=== PATIENT | male | born 1945 | race Two or more races ===

== ENCOUNTER 2022-09-12 06:28 | Observation (INO) ==
--- NOTE | 2022-08-30 14:03 | PAT Medication Instructions ---
Medication Instructions Date of Service August 30, 2022 Home Medications allopurinol 100 mg tablet 100 mg PO QAM apixaban 5 mg tablet (Eliquis) 5 mg PO BID atorvastatin 10 mg tablet 10 mg PO PM cholecalciferol (vitamin D3) 100 mcg (4,000 unit) tablet 100 mcg PO QAM coenzyme Q10 75 mg capsule (Ultra CoQ10) 75 mg PO QAM digoxin 125 mcg (0.125 mg) tablet 125 mcg PO QAM duloxetine 20 mg capsule,delayed release 20 mg PO BID fenofibric acid (choline) 135 mg capsule,delayed release 135 mg PO PM losartan 100 mg tablet 100 mg PO QAM metoprolol tartrate 50 mg tablet 50 mg PO BID eycgxiiqejaw-dqejnmor-tlgdkk tablet 1 tab PO QAM ascorbic acid (vitamin C) 125 mg chewable tablet (Vitamin C) 125 mg PO QAM levothyroxine 75 mcg tablet 75 mcg PO QAM ASK your prescriber and surgeon apixaban 5 mg tablet (Eliquis) 5 mg PO BID (in order for spinal anesthesia, Apixaban/Eliquis needs to be stopped 72 hours/3 days before surgery. Please check if okay with doctor that prescribes this to you) STOP taking 2 weeks before surgery (or as soon as possible if surgery is within 2 weeks) coenzyme Q10 75 mg capsule (Ultra CoQ10) 75 mg PO QAM lxfuefizxeet-tznufwgd-rfeipl tablet 1 tab PO QAM STOP taking 48 hours before surgery fenofibric acid (choline) 135 mg capsule,delayed release 135 mg PO PM DO NOT take the morning of surgery cholecalciferol (vitamin D3) 100 mcg (4,000 unit) tablet 100 mcg PO QAM losartan 100 mg tablet 100 mg PO QAM ascorbic acid (vitamin C) 125 mg chewable tablet (Vitamin C) 125 mg PO QAM Take morning of surgery With a small sip of water, OTHERWISE NOTHING TO EAT OR DRINK AFTER MIDNIGHT: allopurinol 100 mg tablet 100 mg PO QAM digoxin 125 mcg (0.125 mg) tablet 125 mcg PO QAM duloxetine 20 mg capsule,delayed release 20 mg PO BID metoprolol tartrate 50 mg tablet 50 mg PO BID levothyroxine 75 mcg tablet 75 mcg PO QAM Take evening before surgery atorvastatin 10 mg tablet 10 mg PO PM duloxetine 20 mg capsule,delayed release 20 mg PO BID metoprolol tartrate 50 mg tablet 50 mg PO BID Other Notes If you have any questions please call us at [phone] or [phone] or [phone] or [phone]
--- NOTE | 2022-09-07 15:04 | Anesthesiology Consultation ---
Date of Service September 07, 2022 Assessment & Plan (1) Encounter for pre-operative examination: - COVID screening: Per assessment on 09/07: No known COVID-19 positive contacts or current COVID-19 related symptoms. Travel screen negative. Patient vaccinated. At surgeon discretion if preop Covid testing being done. - Outpatient joint assessment: Pt currently scheduled for inpatient pathway. If surgeon requests review for outpatient joint pathway, patient is not recommended candidate for outpatient joint program from anesthesia standpoint. - Check BSG AM DOS - Apixaban instructions: patient made aware that in order for spinal anesthesia, Apixaban needs to be held 72 hours/3 days prior to surgery. Patient voiced understanding/will check if okay with prescriber. Chart Review Chart Review: Acceptable Risk for Surgery and Patient seen in Pre Admission Testing Teaching & Discussion Pre-Anesthesia Teaching/Discussion Notes: Instructed NPO after midnight before surgery,except medications with 15 cc of water. Medication instructions provided according to the PAT guidelines. History Surgery Operation Date: 09/12/22 10:40 Proposed Procedures p Right Total Hip Arthroplasty - Andres Kirkpatrick MD Height/Weight Height: 5 ft 7 in Weight: 87.5 kg Allergies Allergy/AdvReac Type Severity Reaction Status Date / Time No Known Allergies Allergy Verified 08/29/22 15:01 Medications Home Medications Medication Instructions Recorded Confirmed Last Taken allopurinol 100 mg tablet 100 mg PO QAM 08/25/22 08/29/22 Unknown apixaban 5 mg tablet (Eliquis) 5 mg PO BID 08/25/22 08/29/22 Unknown atorvastatin 10 mg tablet 10 mg PO PM 08/25/22 08/29/22 Unknown cholecalciferol (vitamin D3) 100 100 mcg PO QAM 08/25/22 08/29/22 Unknown mcg (4,000 unit) tablet coenzyme Q10 75 mg capsule (Ultra 75 mg PO QAM 08/25/22 08/29/22 Unknown CoQ10) digoxin 125 mcg (0.125 mg) tablet 125 mcg PO QAM 08/25/22 08/29/22 Unknown duloxetine 20 mg capsule,delayed 20 mg PO BID 08/25/22 08/29/22 Unknown release fenofibric acid (choline) 135 mg 135 mg PO PM 08/25/22 08/29/22 Unknown capsule,delayed release losartan 100 mg tablet 100 mg PO QAM 08/25/22 08/29/22 Unknown metoprolol tartrate 50 mg tablet 50 mg PO BID 08/25/22 08/29/22 Unknown lgfgyvkrvllz-iytjdzcw-hqkbgg tablet 1 tab PO QAM 08/25/22 08/29/22 Unknown ascorbic acid (vitamin C) 125 mg 125 mg PO QAM 08/29/22 08/29/22 Unknown chewable tablet (Vitamin C) levothyroxine 75 mcg tablet 75 mcg PO QAM 08/29/22 08/29/22 Unknown Past Medical History Medical History Arthritis of right hip Atrial fibrillation Dx 3+ years ago, on Eliquis Managed by PCP CKD (chronic kidney disease) Congenital nystagmus Diabetes Diet controlled Diverticular disease Hiatal hernia Possible Hyperlipidemia Hypertension Hypothyroidism Leaky heart valve No significant valvular disease per 05/2022 echo Osteoarthritis Exercise / Class Metabolic Activity II 4-5 Yardwork/Stairs/Walk up hill (one FS (no CP, no SOB)) Past Family History Family History Mother Diabetes Past Surgical History Surgical History History of cardiac cath 15 yrs ago > no stents History of cardioversion History of cataract surgery R/L History of colonoscopy History of esophagogastroduodenoscopy (EGD) History of tooth extraction Hx of detached retina repair right Hx of inguinal hernia repair left x2 Past Anesthesia History No Hx of Anesthesia Complications and No Family Hx of Anesthesia Complications History of PONV No Hx of PONV and No Hx of Motion Sickness Social History Smoking Status: Former smoker Do You Dip or Chew Tobacco: No (quit in 1988) Smoking End Date: Quit 1988 Hx Alcohol Use: Yes Alcohol type: beer alcohol intake frequency: a few times a month Hx Substance Use: No substance use type: does not use Review of Systems Patient denies chest pain, shortness of breath, dyspnea on exertion, fever, chills, cough, wheezing, palpitations. Physical Exam Vital Signs VITALS BP 147/84 P 55 TEMP 98.3 SP02 96%RA RESP 16 PHYSICAL Full cervical extension range of motion. Full TMJ range of motion. TMD 4 finger breaths Mallampati Score 1 Dentition: upper partial Lungs: clear throughout to auscultation Cardiac: regular rate, irregular rhythm, no murmurs noted Spine: normal Carotid arteries: negative bruit Extremities: no edema Lab Results Anesthesia Preop Results Results Anesthesia Widget: WBC 6.70 K/ul (4.8-10.8) 09/07/22 Hgb 14.3 g/dl (14.0-18.0) 09/07/22 Hct 42.6 % (40.1-51.0) 09/07/22 Plt 287 K/uL (130-400) 09/07/22 Na 133 mmol/L (136-145) L 09/07/22 K 4.2 mmol/L (3.5-5.1) 09/07/22 Cl 102 mmol/L (98-107) 09/07/22 CO2 21 mmol/L (21-32) 09/07/22 BUN 24 mg/dl (6-23) H 09/07/22 Creat 0.93 mg/dl (0.6-1.4) 09/07/22 Glucose Level 104 mg/dl (70-99(Fasting)) H 09/07/22 PT 11.3 Seconds (9.0-12.0) 09/07/22 PTT 30.2 Seconds (21.0-31.0) 09/07/22 INR 1.1 (0.9-1.1) 09/07/22 Blood Type O Positive 09/07/22 Antibody Screen NEGATIVE 09/07/22 Testing Electrocardiogram Date: 06/16/22 A. fib at 71 bpm. Low voltage QRS in limb leads. Chest X-Ray Date: 01/14/22 Spinal silhouette is mildly elevated. Atherosclerotic calcification of the aortic arch. Multilevel anterior bridging osteophytes which may reflect evidence of DISH. No acute airspace opacities are seen. Echocardiogram Date: 06/16/22 EF 55-60%. No regional motion abnormality. Mild MR. Severe LAD. Mild AR. COVID-19 Risk Screen Screening Information COVID-19 Screen Date: 09/07/22 Exposure 21 Days Family/Household +COVID Last 21 Days: No Exposure 10 Days Any COVID Exposure Last 10 Days: No Symptoms Last 10 Days Experienced COVID Sx Last 10 Days: No + COVID 0-90 Days COVID + in Last 0-90 Days: No
[~2022-09-12 06:28] MED LIST: ACETAMINOPHEN 500 MG TAB PO SCH; CeleBREX 200 MG CAP PO SCH; FAMOTIDINE 20 MG TAB PO SCH; LR 500ML BOLUS, THEN 15ML/HR IV SCH; METOCLOPRAMIDE HCL 10 MG TABLET PO SCH; TRANEXAMIC ACID 1,000 MG **IV Pre-op IV SCH; ceFAZolin 2000MG 2,000 MG/15 ML SYR IV SCH
--- NOTE | 2022-09-12 06:57 | History & Physical Bridge Note ---
Date of Service September 12, 2022 History & Physical Bridge Note I have examined the patient, reviewed the History & Physical and in the interval since the performance of the History & Physical I have noted the following changes of clinical significance: no changes noted
[2022-09-12] MEDS ORDERED: BUPIVACAINE 0.5 % 5 MG/1 ML PF 10ML VIAL ONE (06:59)
[2022-09-12] MEDS ORDERED: MIDAZOLAM HCL 1 MG/ML 2ML VIAL ONE (07:27)
[2022-09-12] MEDS ORDERED: fentaNYL citrate 100 MCG/2 ML VIAL ONE (07:27)
[2022-09-12] MEDS ORDERED: BUPIVACAINE 0.5 % 5 MG/1 ML MPF 30ML VIAL ONE (08:44)
[2022-09-12] MEDS ORDERED: EPINEPHrine INJ 1 MG/ML AMP ONE (08:44)
[2022-09-12] MEDS ORDERED: PROPOFOL IV EMULSION 10 MG/ML 20 ML VIAL IV ONE (08:59)
--- NOTE | 2022-09-12 10:26 | Operative Report ---
PG Post Operative Report Pre & Post Diagnosis Operation Date: 09/12/22 08:50 Pre-Op Diagnosis: Right hip degenerative joint disease. Post-Op Diagnosis: Right hip degenerative joint disease. I identified the patient and participated in the time-out.: Yes Procedure Operation Date: 09/12/22 08:50 Actual Procedures p Right Total Hip Arthroplasty(Right) - Andres Kirkpatrick MD Surgeon Andres Kirkpatrick MD [employer] Yoni Tirado PA-C Estimated Blood Loss 200 Findings Consistent with Post-Op Diagnosis Operative findings were advanced right hip DJD. He had advanced grade 4 ppbi-nj-suxc disease of the femoral head and acetabulum. He had pretty significant eburnation of both surfaces. Is a large osteophyte and extra bone formed posteriorly as well as inferiorly likely related to his previous fracture. Moderate-sized joint effusion. Very stiff hip. Fluids 1000 cc Specimens Right femoral head sent for pathology Drains None Anesthesia Type Spinal MAC Complications none Disposition Accompanied Patient To Recovery: No Indications Patient 77-year-old gentleman who has a history of an acetabular fracture many y ears ago treated conservatively. Over the past 5 years he developed increased pain discomfort and stiffness in his right hip. The pain is progressed despite conservative care. X-rays show advanced arthritis. He elected proceed with surgical treatment. Description of Procedure Operative implants consist of: 1. Biomet G7 size 58 mm acetabular shell. 2. [place] hole die storage worker. 3. 6.5 cancellous acetabular screws 135 mm length by 30 mm length. 4. Highly cross-linked polyethylene liner with a 58 mm outer diameter and 36 mm inner diameter. 5. DePuy Corail size 13 KLA short neck/125 degree angle femoral stem. 6. +5/36 mm ceramic articular ball. The patient was taken the operating, identified, and placed on the operating table supine position protectors were properly padded. IV antibiotics tried by anesthesia team. Spinal anesthetic and been implemented holding area. Rucker catheter was placed in sterile fashion. Patient then placed in the left lateral decubitus position. An axillary roll was placed. A Stulberg hip positioner used for positioning. Right hip and leg were then prepped and draped in usual sterile fashion. A posterolateral approach to the right hip was then performed through a curvilinear incision centered over the greater trochanter. Sharp dissection Through subcutaneous tissue down below the IT band gluteal fascia the IT band gluteal fascia incised longitudinally in line with skin incision. The underlying greater bursa was excised. The piriformis and external rotators were tagged and taken off the posterior aspect of the hip joint capsule. Great care was taken throughout the procedure protect the sciatic nerve at all times. A posterior capsulotomy was then performed leaving a large flap for later repair. Hip was internally rotated and dislocated. Femoral neck osteotomy cut was made with Final Cut about 14 mm above the lesser trochanter. Femoral head was removed and sent for pathology. The femur was retracted anteriorly. Attention drawn the acetabulum. The acetabular labrum was excised. The pulmonary fat was excised. I did remove some osteophytes posterior and inferior as they were quite a large and in the way. I then reamed beginning with a size 49 and progressing up to a 57. I did reamed a little bit with a 58 reamer and then placed a 58 mm Biomet G7 acetabular shell in about 40 degrees lateral opening and 20 degrees of anteversion. It was fixed with two 6.5 cancellous acetabular screws. Trial liner was placed. Attention drawn the femur. The proximal femur was entered with a [employer] cutter followed by canal finder. I then broached beginning size 8 and progressing up to a 13. We got excellent fit at 13. Hip was then trialed. With the initial neck it was just really tight. Therefore we elected to use the short neck. The hip was fully stable full extension and external rotation flexion to 90 degrees internal Tatian to about 50 degrees. I did elect to place a hendrickson inferior and posterior to maximize his stability in flexion. All trial implants were removed. An apex hole die storage worker was placed. Highly cross-linked polyethylene liner with a hendrickson placed inferior and posterior was then impacted in position. DePuy size 13 KLA short neck 125 degree angle femoral stem was impacted in position. +5/36 mm ceramic articular ball was placed. Hip was located once again found to be stable. Still a bit tight in extension but I elected to accept this. Leg lengths seem equal. Otherwise soft tissue tension seemed appropriate. Attention drawn toward closing. The wounds irrigated copious pulsatile lavage solution. I did inject locally with 60 cc of half percent Marcaine with epinephrine. Posterior capsule and external rotators then repaired through drill holes in the posterior trochanter with #2 Tycron suture. The IT band gluteal fascia then closed in 1 PDS suture running fashion for subcutaneous tissue then closed with 2 layers with a deep layer #1 Vicryl suture in the subcutaneous tissues with 2-0 Dexon suture in a buried interrupted fashion. Skin was closed skin griffin. Leg was then cleaned and dried and a sterile dressing was Xeroform, 4 x 4's, sterile ABD pad, foam tape was applied. Patient then transferred to the recovery room in stable condition. Patient tolerated procedure well and there were no complications. Yoni Tirado, my physician data entry assistant, was present for the entire procedure. His assistance was essential and required for appropriate patient positioning, prepping and draping, surgical exposure, performing the technical details of the operation, placement the implants, closure of the wound, and placement of the sterile bandage. I attest to the content of the Intraoperative Record and any orders documented therein. Any exceptions are noted below.
[2022-09-12] MEDS ORDERED: METOCLOPRAMIDE HCL INJ 5 MG/ML 2 ML VIAL IV PRN (12:02)
[2022-09-12] MEDS ORDERED: MAGNESIUM HYDROXIDE SUSP 30 ML UDC PO PRN (12:02)
[2022-09-12] MEDS ORDERED: bisacodyL 10 MG SUPP PR PRN (12:02)
[2022-09-12] MEDS ORDERED: GLUCAGON FOR INJ 1 MG VIAL SQ PRN (12:02)
[2022-09-12] MEDS ORDERED: GLUCOSE 10 TAB/TUBE PO PRN (12:02)
[2022-09-12] MEDS ORDERED: traMADol HCL 50 MG TABLET PO PRN (12:02)
[2022-09-12] MEDS ORDERED: ALUMINUM/MAGNESIUM SUSP 30 ML UDC PO PRN (12:02)
[2022-09-12] MEDS ORDERED: PHARMACY GLYCEMIC MGMT CONSULT PRN (12:02)
[2022-09-12] MEDS ORDERED: HYDROmorphone INJ 0.5 MG/0.5 ML SYR IV PRN (12:02)
[2022-09-12] MEDS ORDERED: CARBOHYDRATES FOR HYPOGLYCEMIA PO PRN (12:02)
[2022-09-12] MEDS ORDERED: GLUCOSE 40% GEL 15 GM TUBE PO PRN (12:02)
[2022-09-12] MEDS ORDERED: NALOXONE HCL 0.4 MG/1 ML VIAL/CARP IV PRN (12:02)
[2022-09-12] MEDS ORDERED: DEXTROSE 50% 50 ML SYRINGE IV PRN (12:02)
[2022-09-12] MEDS ORDERED: ONDANSETRON INJ 2 MG/ML 2 ML VIAL IV PRN (12:02)
[2022-09-12] MEDS: SODIUM CHLORIDE 0.9% 1000ML 1,000 ML IV SCH ×2 (12:07→21:35)
--- NOTE | 2022-09-12 12:37 | Anesthesiology Progress Note ---
Date of Service September 12, 2022 Anesthesia Post Procedure Vital Signs Vital Signs: Temp Pulse Pulse Resp BP Pulse Ox O2 Del Method 09/12/22 12:29 76 16 102/66 92 Room Air 09/12/22 12:00 36.5 C 68 16 97/62 L 94 Room Air 09/12/22 11:10 77 12 92/66 L 98 Room Air 09/12/22 11:35 36.2 C L 66 17 105/65 97 Room Air 09/12/22 11:20 65 12 103/68 95 Room Air 09/12/22 11:00 76 15 98/66 L 96 Room Air 09/12/22 10:50 69 15 96/66 L 96 Room Air 09/12/22 10:40 85 17 90/64 L 100 Oxymask 09/12/22 10:30 83 18 88/56 L 97 Oxymask 09/12/22 10:21 36.3 C L 98 H 18 89/68 L 98 Oxymask 09/12/22 07:29 36.8 C 92 H 20 135/100 97 Room Air O2 Flow Rate 09/12/22 12:29 09/12/22 12:00 09/12/22 11:10 09/12/22 11:35 09/12/22 11:20 09/12/22 11:00 09/12/22 10:50 09/12/22 10:40 6 09/12/22 10:30 6 09/12/22 10:21 6 09/12/22 07:29 Transfer of Care Handoff Completed per policy Notes Mental Status: alert / awake / arousable Patient Amnestic to Procedure: Yes Nausea / Vomiting: adequately controlled Pain: adequately controlled Airway Patency, RR, SpO2: stable & adequate BP & HR: stable & adequate Hydration State: stable & adequate Neuraxial Anesthesia: was administered and sensory block is resolving Anesthetic Complications: no major complications apparent
--- NOTE | 2022-09-12 12:58 | XRay Report ---
XR hip 1V RT w pelvis CLINICAL HISTORY: IN PACU - Post Surgical TECHNIQUE: 2 views of the right hip and single frontal view of the pelvis were obtained. Comparison: Comparison is made to right hip radiographs 08/25/2022 FINDINGS: Patient is status post total hip arthroplasty with expected postsurgical changes including soft tissu e swelling and subcutaneous emphysema. Joint spaces are well-preserved. No soft tissue abnormality i s seen. IMPRESSION: Expected postoperative appearance status post placement of total hip arthroplasty. ACT 112: Negative or not required by law. Electronically signed by: Carlton Ferro M.D. 09/12/2022 12:56 PM
[2022-09-12] MEDS: ACETAMINOPHEN 500 MG TAB PO SCH ×2 (14:06→21:44)
--- NOTE | 2022-09-12 14:11 | Progress Notes ---
DATE OF SERVICE: 09/12/2022 SUBJECTIVE: A 77-year-old gentleman postoperative from a right hip replacement. He is doing pretty well. Really not having any pain yet. No chest pain, no shortness of breath. Not feeling dizzy or lightheaded. OBJECTIVE: VITAL SIGNS: Temperature is 36.4. Vital signs are stable. GENERAL: Shows a pleasant, elderly male. He is sitting up in bed, looks comfortable. He is talking to his . LUNGS: Clear to auscultation. HEART: Regular rate and rhythm. ABDOMEN: Soft, nontender, nondistended. EXTREMITIES: Grossly neurovascularly intact except as follows: Examination of the right leg reveals the leg lengths to be equal. Dressing is clean, dry and intact. Thigh is soft and supple. He can dorsiflex and plantarflex his foot appropriately. X-RAYS: X-rays of the right hip from recovery room are reviewed. It shows right uncemented hip repl acement. Components looked to be in good position. No signs of problems. ASSESSMENT: A 77-year-old gentleman postoperative from a right hip replacement, doing well. He has got multiple medical comorbidities, but all seem to be under control. PLAN: 1. DVT prophylaxis includes thigh-high TEDs, SCDs and we will start him back on his Eliquis starting 24 hours postop. We will start a prophylactic dose and then proceed to a full dose as time goes on. 2. PT, OT, weightbear as tolerated. Right total hip protocol. 3. Pain control, doing okay with current pain regimen. 4. Disposition: Plan to discharge to home with some home health once adequately recovered and medic ally stable. Job ID: [id number]
--- NOTE | 2022-09-12 14:27 | Pharmacy Report ---
Pharmacy Glycemic Short Note 2 - Date of Service September 12, 2022 - Glycemic Short BSG Results (Last 24 hours): 09/12/22 09/12/22 09/12/22 07:20 10:24 12:20 POC Glucose 137 H 175 H 112 H OUTPATIENT ANTIDIABETIC REGIMEN: * N/A * No A1c- ordered for tomorrow ASSESSMENT: * Patient BSG today 137-175 and 112 post op. No steroid administration evident. Given lack of history and post op BSG, will only order a novolog scale with correctional parameters at this time. PLAN FOR INPATIENT GLYCEMIC CONTROL: * Hold outpatient oral diabetes medications * Basal insulin * none * Bolus insulin * NovoLog per scale ACHS or Q6hrs while NPO * Goal Range: Low 110 mg/dL - High 140 mg/dL * Correction Factor: 40 mg/dL/unit
[2022-09-12] MEDS ORDERED: TRANEXAMIC ACID / 0.7% NACL 1,000 MG/100 ML BAG IV SCH (16:30)
[2022-09-12] MEDS: ASCORBIC ACID 500 MG TAB PO SCH (16:42)
[2022-09-12] MEDS: ceFAZolin 2000MG 2,000 MG/15 ML SYR IV SCH (16:42)
[2022-09-12] MEDS: INSULIN ASPART PER UNIT SC SCH ×2 (17:19→21:36)
[2022-09-12] MEDS: KETOROLAC TROMETHAMINE 15 MG/ML VIAL IV SCH (18:10)
[2022-09-12] MEDS: DOCUSATE SODIUM/SENNA 50/8.6MG TAB PO SCH (20:12)
[2022-09-12] MEDS: METOPROLOL TARTRATE 50 MG TAB PO SCH (20:13)
[2022-09-12] MEDS: DULoxetine HCL 20 MG CAP PO SCH (20:13)
[2022-09-12] MEDS: DOCUSATE SODIUM 100 MG CAP PO SCH (20:14)
[2022-09-12] MEDS ORDERED: ATORVASTATIN 10 MG TAB PO SCH (21:00)
[2022-09-12] MEDS ORDERED: SENNA 8.6 MG TAB PO SCH (21:00)
[2022-09-13] MEDS: ceFAZolin 2000MG 2,000 MG/15 ML SYR IV SCH (00:18)
[2022-09-13] MEDS: KETOROLAC TROMETHAMINE 15 MG/ML VIAL IV SCH ×2 (00:18→05:29)
[2022-09-13] MEDS: ACETAMINOPHEN 500 MG TAB PO SCH (05:30)
[2022-09-13 07:18] LABS: Basophils # (auto) 0.02 K/uL (0-0.2); Basophils % (auto) 0.2 %; Eosinophils # (auto) 0.04 K/uL (0-0.50); Eosinophils % (auto) 0.4 %; Hematocrit (blood only) 35.8 % (40.1-51.0); Hemoglobin 12.2 g/dl (14.0-18.0); Immature Granulocytes # (auto) 0.04 K/uL (0.00-0.02); Immature Granulocytes % (auto) 0.4 %; Lymphocytes # (auto) 1.16 K/uL (1.2-3.4); Mean Corpuscular Hemoglobin 30.9 pg (25.0-34.0); Mean Corpuscular Hgb Conc 34.1 g/dL (32.0-36.0); Mean Corpuscular Volume 90.6 fL (80.0-100.0); Mean Platelet Volume 9.4 fL (9.4-12.4); Monocytes # (auto) 1.22 K/uL (0.24-0.82); Monocytes % (auto) 11.6 %; Neutrophils # (auto) 8.06 K/uL (1.4-6.5); Neutrophils % (auto) 76.4 %; Platelet Count 212 K/uL (130-400); RDW Coefficient of Variation 12.9 % (11.5-14.5); RDW Standard Deviation 43.3 fL (36.4-46.3); Red Blood Count 3.95 M/uL (4.63-6.08); White Blood Count 10.54 K/ul (4.8-10.8)
[2022-09-13 07:46] LABS: Anion Gap 7 (3-11); BUN Creatinine Ratio 17.1 (10-20); Blood Urea Nitrogen 12 mg/dl (6-23); Calcium 8.7 mg/dl (8.5-10.1); Carbon Dioxide 22 mmol/L (21-32); Chloride 107 mmol/L (98-107); Creatinine Clr Calc Pharmacy 93.3 ml/min; Est GFR (African American) 105.5 ml/min; Glucose 152 mg/dl (70-99(Fasting)); Sodium 136 mmol/L (136-145)
[2022-09-13 08:02] LABS: Estimated Average Glucose 114 mg/dl; Hemoglobin A1C 5.6 % (4.5-5.6)
[2022-09-13] MEDS: INSULIN ASPART PER UNIT SC SCH ×2 (08:26→12:23)
[2022-09-13] MEDS: METOPROLOL TARTRATE 50 MG TAB PO SCH (08:54)
[2022-09-13] MEDS: DOCUSATE SODIUM/SENNA 50/8.6MG TAB PO SCH (08:54)
[2022-09-13] MEDS: DULoxetine HCL 20 MG CAP PO SCH (08:54)
[2022-09-13] MEDS: DOCUSATE SODIUM 100 MG CAP PO SCH (08:54)
[2022-09-13] MEDS: ASCORBIC ACID 500 MG TAB PO SCH (08:55)
[2022-09-13] MEDS ORDERED: ASCORBIC ACID 125 MG PO SCH (09:00)
[2022-09-13] MEDS ORDERED: allopurinoL 100 MG TAB PO SCH (09:00)
[2022-09-13] MEDS ORDERED: MULTIVITAMIN TAB PO SCH (09:00)
[2022-09-13] MEDS ORDERED: CHOLECALCIFEROL 1,000 UNITS 25 MCG TAB PO SCH (09:00)
[2022-09-13] MEDS ORDERED: CEROVITE ADV FORMULA TAB PO SCH (09:00)
[2022-09-13] MEDS ORDERED: LOSARTAN POTASSIUM 50 MG TAB PO SCH (09:00)
[2022-09-13] MEDS ORDERED: LEVOTHYROXINE SODIUM 75 MCG TABLET PO SCH (09:00)
[2022-09-13] MEDS ORDERED: TAMSULOSIN HCL 0.4 MG CAP PO SCH (09:00)
[2022-09-13] MEDS ORDERED: DIGOXIN 0.125 MG TAB PO SCH (09:00)
[2022-09-13] MEDS ORDERED: NON-FORMULARY MEDICATION (Coenzyme Q10 [Ultra Coq10] 75 mg capsule) PO SCH (09:00)
[2022-09-13] MEDS ORDERED: APIXABAN 2.5 MG TAB PO SCH (11:00)
--- NOTE | 2022-09-13 14:18 | Progress Notes ---
DATE OF SERVICE: 09/13/2022 SUBJECTIVE: A 77-year-old gentleman postoperative day 1 from a right hip replacement. He has done p retty well. Pain is controlled. Therapy went reasonably well. He has been doing some walking. Fee ls comfortable and wants to go home. OBJECTIVE: VITAL SIGNS: Temperature is 36.9. Vital signs are stable. GENERAL: Shows a pleasant, elderly male. He is sitting up in his bedside chair and looks quite comf ortable. EXTREMITIES: Examination of the right hip reveals dressing to be clean, dry and intact. Leg lengths were equal. Thigh is soft and supple. He is neurologically intact. LABORATORY DATA: Hemoglobin 12.2. Hematocrit 35.8. Electrolytes are stable. ASSESSMENT: A 77-year-old gentleman postoperative day 1 from a right total hip replacement. He is d oing quite well. Pain is controlled. He is neurologically intact. PLAN: 1. DVT prophylaxis includes thigh-high TEDs, SCDs and back on his Eliquis. He is on a prophylactic dose today and then back on regular dose tomorrow. 2. PT, OT, weightbear as tolerated. Right total hip protocol. 3. Pain control, doing okay with current pain regimen. 4. Disposition: Plan to discharge to home later today if he does okay in therapy. Follow up in [facility] in 2 weeks. Job ID: [id number]
--- NOTE | 2022-09-17 17:15 | Discharge Summary ---
Date of Service September 17, 2022 Discharge Data Procedures Performed Operation Date: 09/12/22 08:50 Actual Procedures p Right Total Hip Arthroplasty(Right) - Andres Kirkpatrick MD Hospital Course (1) Status post total hip replacement, right: This is a 77 year old patient admitted on 09/12/22 and underwent total hip arthroplasty. He tolerated the procedure well and there were no complications. T ransferred to the PACU post op and later to the orthopedic floor for further care. He was given ancef for antibiotic prophylaxis. He was also given OK stockings, SCDs, and eliquis for DVT prophylaxis. Hemoglobin, hematocrit, and vital signs were monitored during his hospital stay and remained stable. Did not require any blood transfusions. There were no complications during his hospital stay. By post op day #1 the patient was tolerating a diabetic diet, pain was reasonably controlled with oral pain medicine, and he was participating in physical therapy. On post op day #1 the patient was discharged home and set up with home health care. He was given printed discharge instructions including prescriptions for extra strength tylenol, tramadol, senokot, zofran, and flomax. Continue physical therapy, weight bearing as tolerated. Continue OK stockings. Follow up approximately 2 weeks post op or sooner if there are problems or concerns. Coding Level of Care Code None Diagnoses Status post total hip replacement, right Z96.641
== END 2022-09-13 13:14 | disposition home health service (06) ==
LOC: ASU 06:28 → 3E 06:28
DX: M16.11 Unilateral primary osteoarthritis, right hip; F17.220 Nicotine dependence, chewing tobacco, uncomplicated; Z79.899 Other long term (current) drug therapy; Z79.890 Hormone replacement therapy; Z79.01 Long term (current) use of anticoagulants